=== PATIENT | male | born 1990 | race African-American/Black ===

== ENCOUNTER 2017-03-12 19:59 | Emergency (ER) | payer OTHER ==
[2017-03-12 20:18] VITALS: BP 126/84
--- NOTE | 2017-03-12 20:29 | ER Document Report ---
ED Medical Screen (RME) - General Chief Complaint: Abdominal Pain Stated Complaint: ABDOMINAL PAIN Time Seen by Provider: 03/12/17 20:28 Notes: Patient states she has 1 day of suprapubic abdominal pain. He denies any dysuria. He denies any hematuria. No fevers. No vomiting. He can eat normally. TRAVEL OUTSIDE OF THE [place] IN LAST 30 DAYS: No Past Medical History Renal/ Medical History: Denies: Hx Peritoneal Dialysis Physical Exam - Vital signs Vitals: Temp Pulse Resp BP Pulse Ox 98.4 F 53 L 16 126/84 H 97 03/12/17 20:16 03/12/17 20:16 03/12/17 20:16 03/12/17 20:16 03/12/17 20:16 Course - Vital Signs Vital signs: Temp Pulse Resp BP Pulse Ox 98.4 F 53 L 16 126/84 H 97 03/12/17 20:16 03/12/17 20:16 03/12/17 20:16 03/12/17 20:16 03/12/17 20:16
[2017-03-12 21:38] LABS: APPEARANCE,URINE CLEAR; BILIRUBIN,URINE NEGATIVE (NEGATIVE); GLUCOSE, URINE NEGATIVE (NEGATIVE); KETONES,URINE NEGATIVE (NEGATIVE); LEUKOCYTE ESTERASE,URINE NEGATIVE (NEGATIVE); NITRITE,URINE NEGATIVE (NEGATIVE); PROTEIN,URINE NEGATIVE (NEGATIVE); URINE SPECIFIC GRAVITY 1.016; UROBILINOGEN,URINE NEGATIVE mg/dL (<2.0)
[2017-03-12] MEDS ORDERED: AZITHROMYCIN 1 GM SUSP PACKET PO ONE (22:04)
--- NOTE | 2017-03-12 22:04 | ER Document Report ---
ED GI/ - General Chief Complaint: Abdominal Pain Stated Complaint: ABDOMINAL PAIN Time Seen by Provider: 03/12/17 20:28 TRAVEL OUTSIDE OF THE [place] IN LAST 30 DAYS: No - HPI Patient complains to provider of: Other - suprapubic fullness Onset: Just prior to arrival Timing/Duration: Gradual Quality of pain: No pain Pain Level: Denies Sexual history: Active. denies: Condoms Similar symptoms previously: No Recently seen / treated by doctor: No Past Medical History - Social History Smoking Status: Current Every Day Smoker Chew tobacco use (# tins/day): No Frequency of alcohol use: Social Drug Abuse: None Family History: Reviewed & Not Pertinent Neurological Medical History: Reports: Hx Migraine Renal/ Medical History: Denies: Hx Peritoneal Dialysis Surgical Hx: Negative - Immunizations Hx Diphtheria, Pertussis, Tetanus Vaccination: Yes Review of Systems - Review of Systems Constitutional: No symptoms reported Genitourinary: See HPI -: Yes All other systems reviewed and negative Physical Exam - Vital signs Vitals: Temp Pulse Resp BP Pulse Ox 98.4 F 53 L 16 126/84 H 97 03/12/17 20:16 03/12/17 20:16 03/12/17 20:16 03/12/17 20:16 03/12/17 20:16 - General General appearance: Appears well, Alert In distress: None - Abdominal Inspection: Normal Distension: No distension Bowel sounds: Normal Tenderness: Nontender Organomegaly: No organomegaly - Genitourinary Inspection: Normal. No: Penile discharge Tenderness: Nontender. No: Testicle tender, Epididymis tender Cremasteric reflex: Normal Scrotum: Normal. No: Swelling, Redness, Hot to touch - Back Back: Normal. No: CVA tenderness - Extremities General upper extremity: Normal inspection, Nontender, Normal color, Normal ROM , Normal strength, Normal temperature General lower extremity: Normal inspection, Nontender, Normal color, Normal ROM , Normal strength, Normal temperature, Normal weight bearing Course - Re-evaluation Re-evalutation: 03/13/17 06:59 Patient is a 26-year-old male hemodynamic stable, no acute distress afebrile. No evidence of. Patient tests negative for chlamydia and gonorrhea. Patient stable for discharge home and can follow-up with primary care. After performing a Medical Screening Examination, I estimate there is LOW risk for ACUTE APPENDICITIS, BOWEL OBSTRUCTION, ACUTE CHOLECYSTITIS, PERFORATED DIVERTICULITIS, INCARCERATED HERNIA, PANCREATITIS, or PERFORATED ULCER, thus I consider the discharge disposition reasonable. Also, there is no evidence or peritonitis, sepsis, or toxicity. I have reevaluated this patient multiple times and no significant life threatening changes are noted. The patient and I have discussed the diagnosis and risks, and we agree with discharging home with close follow-up with the understanding that symptoms and presentations can change. We also discussed returning to the Emergency Department immediately if new or worsening symptoms occur. We have discussed the symptoms which are most concerning (e.g., bloody stool, fever, changing or worsening pain, intractable vomiting - standard verbal up date) that necessitate immediate return. UTI, bacterial infection, trichomonas - Vital Signs Vital signs: Temp Pulse Resp BP Pulse Ox 98.4 F 53 L 16 126/84 H 97 03/12/17 20:16 03/12/17 20:16 03/12/17 20:16 03/12/17 20:16 03/12/17 20:16 Discharge - Discharge Clinical Impression: Dysuria Condition: Good Disposition: HOME, SELF-CARE Additional Instructions: There is no evidence of a urinary tract infection or sexually transmitted disease noted on your initial workup. You can follow-up with your primary care physician visit regarding her concern today. Your results for chlamydia and gonorrhea are pending. You have been treated for these. I will call you with the results if they are positive. If they are negative you will not receive a phone call.
[2017-03-12] MEDS ORDERED: LIDOCAINE 1% INJ-PF (10 MG/ML) 30 ML SDV INJ ONE (22:05)
[2017-03-12] MEDS ORDERED: CEFTRIAXONE INJ 250 MG VIAL IM ONE (22:05)
[2017-03-12 22:59] LABS: CHLAM PCR NOT DETECTED (NOT DETECT)
== END 2017-03-12 22:31 | disposition home or self-care (01) ==
LOC: ER 19:59
DX: R30.0 Dysuria (principal); R10.9 Unspecified abdominal pain; F17.200 Nicotine dependence, unspecified, uncomplicated
CPT/HCPCS: 99284; 96372; 87210; 81001; 87491; 87591; J3490; Q0144; J0696